=== PATIENT | female | born 1955 | race Caucasian/White ===

== ENCOUNTER → 2016-08-16 | Outpatient (CLI) | payer MEDICARE, MEDICAID ==
[~2016-08-16] MED LIST: ADVAIR 100-501 EACH IH; ARTIFICIAL TEAR15 M1 OU; ASA325 MG PO; ATARAX-DPS25 MG PO; B COMPLETE1 EACH PO; BOTOX100 UNITS SQ; BREO ELLIP1 PUFF/DOS IH; BUTRANS TD; CLARITIN DPS10 MG PO; CLARITIN10 M2 PO; COLACE-DPS100 MG PO; COREG DPS3.125 MG PO; DESYREL-DPS50 MG PO; DURAGESIC DPS25 MCG TP; FLONASE 0.05% D16 GM NS; FLONASE ALLER15.8 ML NS; GABAPENTIN400 MG PO; KLONOPIN DPS0.5 MG PO; KLONOPIN0.5 MG PO; MAG-OX400 MG PO; MAGOX 400400 MG PO; MILK OF MAGNESI10 ML PO; MIRALAX PACKET17 GM PO; MONTELUKAST SOD10 MG PO; NEURONTIN600 MG PO; NEURONTIN800 MG PO; OMNICEF DPS300 MG PO; OXY IR DPS5 MG PO; PREPLUS CA-FE1 EACH PO; PROAIR RESPICL90 MCG IH; PROTONIX40 MG PO; SAVELLA100 MG PO; SENOKOT S1 TAB PO; SINGULAIR10 MG PO; STOOL SOFTENER100 MG PO; TEARS NATURAL D15 ML OU; TROKENDI XR200 MG PO; TUDORZA PRESS400 MCG IH; TYLENOL DPS325 MG PO; ULTRAM DPS50 MG PO; VALIUM-DPS2 MG PO; VITAMIN D50000 UNIT PO; ZANAFLEX4 MG PO; [UNRECOGNIZED DRUG - OTHER] IH
== END | disposition home or self-care (01) ==
LOC: PTH.S 10:38
DX: Z01.818 Encounter for other preprocedural examination (principal)

== ENCOUNTER 2016-08-27 07:02 | Inpatient (IN) | payer MEDICARE, MEDICAID ==
[~2016-08-27] VITALS: Ht 154.9 cm; Wt 83.7 kg
--- NOTE | ~2016-08-27 | HP ---
ADMIT: 08/27/2016 RM/LOC: 505 [facility] MR#: [id number] [address] [place] [address] Pre-OP History and Physical SEX: F AGE: 60 : 1955 DATE OF SERVICE: CHIEF COMPLAINT: Right knee pain. HISTORY OF PRESENT ILLNESS: This 60-year-old lady presents today for right total knee arthroplasty. She has a history of idiopathic thrombocytopenic purpura and for surgical purpose will receive platelets prior to her surgery today. She has had a long history of osteoarthritis symptoms, currently having difficulties with activities of daily living because of her knee pain. She has activity-related pain, pain at rest, and pain interferes with her sleep. PAST MEDICAL HISTORY: Medical problems include idiopathic thrombocytopenic purpura, fibromyalgia, osteoarthritis, migraine headache, sleep apnea, asthma, diabetes. PAST SURGICAL HISTORY: Prior surgeries include a cholecystectomy, knee arthroscopy, and bilateral tubal ligation. MEDICATIONS: Medication list includes: 1. Reglan. 2. Fioricet. 3. Flexeril. 4. Metoprolol. 5. Tramadol p.r.n. 6. Lyrica. 7. Singulair. 8. Trokendi. 9. Claritin. 10.Vitamin D3. 11.Savella. 12.Gabapentin. 13.Tizanidine. 14.Advair Diskus. 15.Flonase. 16.Hydrochlorothiazide. 17.Clonazepam. 18.Naproxen. 19.Carvedilol. 20.Proventil. 21.Furosemide. 22.Protonix. ALLERGIES: SHE IS ALLERGIC TO CODEINE AND MORPHINE. FAMILY HISTORY: Positive for diabetes and cancer. SOCIAL HISTORY: The patient's physician is Dr. Gramajo. She lives here in [place]. She is a smoker. ADMIT: 08/27/2016 RM/LOC: 505 [facility] MR#: [id number] [address] [place] [address] Pre-OP History and Physical SEX: F AGE: 60 : 1955 PHYSICAL EXAMINATION: This patient has a valgus deformity of the right knee. She has lateral joint line pain and patellofemoral crepitus. No effusion. RADIOGRAPHS: Show collapse of the lateral compartment of the knee with subchondral sclerosis and marginal osteophytes, including the patellofemoral joint. IMPRESSION: Osteoarthritis, right knee. RECOMMENDATIONS: Right total knee arthroplasty. Risks, benefits, and alternatives as well as potential complications were discussed. EDIT: 08/28/2016 1704 ajf Clair Kennedy MD/ david JOB #: [id number] CC: Clair Kennedy, Attending Physician Sidney Gramajo, Family Physician
[~2016-08-27 07:02] MED LIST changes: -ASA325 MG PO; -BOTOX100 UNITS SQ; -CLARITIN DPS10 MG PO; -COLACE-DPS100 MG PO; -MIRALAX PACKET17 GM PO; -OXY IR DPS5 MG PO
[2016-08-30] MEDS ORDERED: OXY IR DPS5 MG PO (14:01)
[2016-08-30] MEDS ORDERED: MIRALAX PACKET17 GM PO (14:01)
[2016-08-30] MEDS ORDERED: ASA325 MG PO (14:02)
[2016-08-30] MEDS ORDERED: CLARITIN DPS10 MG PO (14:03)
[2016-08-30] MEDS ORDERED: COLACE-DPS100 MG PO (14:03)
[2016-08-30] MEDS ORDERED: PREPLUS CA-FE1 EACH PO (14:03)
[2016-08-30] MEDS ORDERED: BOTOX100 UNITS SQ (14:05)
--- NOTE | 2016-09-14 13:52 | OR ---
ADMIT: 08/27/2016 RM/LOC: 505 [facility] MR#: [id number] [id number] [address] [place] [address] Operative/Delivery Room Report SEX: F AGE: 60 : 1955 SURGERY DATE: 08/27/2016 SURGEON: Clair Kennedy MD PREOPERATIVE DIAGNOSIS: Osteoarthritis, right knee. POSTOPERATIVE DIAGNOSIS: Osteoarthritis, right knee. PROCEDURE: Right total knee arthroplasty. GARAGE SUPERVISOR: Wade Oliva PA-C ANESTHESIA: General/Exparel. TOURNIQUET TIME: 41 minutes. ESTIMATED BLOOD LOSS: 25 mL. COMPLICATIONS: None. SPECIMEN: Bone. COMPONENTS: Ankit and Ankit Attune total knee system with a #4 posterior stabilized lugged femoral, #4 fixed bearing tibial, 5 mm tibial articular, and 38 mm patella. I used 80 g of high viscosity bone cement with 80 mg of gentamicin, and a 1000 mg of vancomycin. DESCRIPTION OF PROCEDURE: This patient was brought to the operating room and after a satisfactory level of anesthesia was achieved, the right lower extremity was prepped and draped in the usual sterile fashion. Under tourniquet ischemia, a midline incision was made over the anterior aspect of the right knee centered on the patella. Dissection was carried down to the joint capsule where skin flaps were made at that level. A medial parapatellar incision was performed. The patellae everted. The knee flexed to 90 degrees. Then, using an intramedullary alignment guide, I made my distal femoral cut at 5 degrees in long axis of the femur. Then, using appropriate cutting blocks, prepared the distal femur for a #4 posterior stabilized lugged femoral component. The external alignment guide was then used to make my tibial cut and a #4 gave us the best coverage of the proximal tibia. A 5 mm then gave us the best stability and range of motion. She had full extension, I could flex her easily to 130 degrees. The patella was then measured, cut, and prepared for a 38 mm patellar component, and in doing so, I restored her normal 26 mm patellar height. At this point, all trial components were removed. Exparel was used per protocol then after thorough irrigation of all bony surfaces, I used 80 g of high viscosity bone cement with 80 mg of gentamicin and a 1000 mg of vancomycin mixed in the cement because of her smoking history, I cemented in ADMIT: 08/27/2016 RM/LOC: 505 [facility] MR#: [id number] [place] [address] Operative/Delivery Room Report SEX: F AGE: 60 : 1955 all 3 components, did a trial reduction and held the knee in extension and irrigated with warm antibiotic solution until the cement hardened. Once the cement had hardened, I flexed the knee, removed any extruded cement with an osteotome then after thorough irrigation of the knee, released tourniquet, obtained hemostasis and impacted my final component onto the tibial tray and reduced the knee. The patient had very good range of motion and stability, and at this point, the joint capsule and synovium were closed as a single layer using interrupted #1 Vicryl, running #2 Quill suture, 2-0 Vicryl in the subcutaneous tissue and then a running 3-0 Monocryl as a subcuticular and Ethicon Prineo for the skin. A sterile dressing was applied. The patient tolerated the procedure well and was then transferred from the operative suite in stable condition. Clair Kennedy MD/ david JOB #: [id number] CC: Clair Kennedy, Attending Physician Sidney Gramajo, Family Physician
--- NOTE | 2016-09-14 13:52 | DS ---
ADMIT: 08/27/2016 RM/LOC: 505 [facility] MR#: [id number] [address] [address] [place] [address] General Discharge Summary SEX: F AGE: 60 : 1955 ADMISSION DATE: 08/27/2016 DISCHARGE DATE: 08/29/2016 REASON FOR ADMISSION: Elective right total knee arthroplasty after failing conservative treatment. PREOPERATIVE DIAGNOSIS: Osteoarthritis of the right knee. POSTOPERATIVE DIAGNOSIS: Osteoarthritis of the right knee. PROCEDURE PERFORMED: Right total knee arthroplasty. SURGEON: Clair Kennedy MD AREA SAFETY MANAGER: Wade Oliva PA-C ANESTHESIA: General. ESTIMATED BLOOD LOSS: 25 mL. COMPLICATIONS: None. ACTIVE MEDICAL PROBLEMS: 1. Idiopathic thrombocytopenic purpura. 2. Fibromyalgia. 3. Osteoarthritis. 4. Migraine headaches. 5. Sleep apnea. 6. Asthma. 7. Diabetes. HOSPITAL COURSE: The patient was admitted on 08/27/2016 for elective right total knee arthroplasty, done successfully without any complications by Dr. Kennedy. She tolerated the procedure well. Prior to the procedure, the patient was administered fresh frozen plasma as prophylaxis for her ITP, she tolerated the infusion well and had no adverse reactions. Pain was well controlled postoperatively with intraoperative Exparel and postoperative oral analgesics. She did suffer from some mild acute blood loss anemia. Her hemoglobin dropped to 9.9 on 08/29/2016, but she remained hemodynamically stable and did not require a blood transfusion. By postoperative day #2, she was safe and participated well with physical therapy. She was stable and ready for discharge with plans for outpatient physical therapy. DISCHARGE MEDICATIONS: 1. Clonazepam 0.25 mg at bedtime. 2. Pantoprazole 40 mg twice daily. 3. Trazodone 50 mg at bedtime. 4. Gabapentin 800 mg twice daily. 5. Gabapentin 1200 mg at bedtime. ADMIT: 08/27/2016 RM/LOC: 505 [facility] MR#: [id number] [id number] [address] [place] [address] General Discharge Summary SEX: F AGE: 60 : 1955 6. Savella 100 mg twice daily. 7. Trokendi XR formula 500 mg every morning. 8. Hydroxyzine hydrochloride 25 mg one tablet twice daily as needed. 9. Tizanidine 4 mg three times daily. 10.Montelukast 10 mg everyday. 11.Butrans patch 15 mcg weekly on Saturday. 12.Breo Ellipta 100/25 mcg one puff twice daily. 13.Ventolin HFA 90 mcg two puffs 4 times daily as needed. 14.Loratadine 10 mg everyday. 15.Docusate sodium 100 mg twice daily. 16.Vitamin D2 at 50,000 units Saturday and Saturday. 17.PrePLUS 27-1 mg vitamin everyday. 18.Artificial Tears two drops four times daily both eyes. 19.Flonase 50 mcg two sprays everyday both nostrils. 20.Magnesium oxide 400 mg twice daily. 21.Aspirin 325 mg at bedtime for 33 days. 22.MiraLax 17 g everyday. 23.Senokot two tablets twice daily. 24.Acetaminophen 650 mg every 6 hours as needed. 25.Tramadol 50-100 mg every 6 hours as needed for pain. 26.Oxycodone 5 mg one to two tablets every 4 hours as needed for breakthrough pain. DISCHARGE INSTRUCTIONS: The patient was discharged home with plans for outpatient physical therapy per total knee arthroplasty protocol. Follow up in the Orthopedic Office in two weeks for wound check and six weeks with x- rays. Follow up with primary care as directed. MARVIN Morel / Clair Kennedy MD / david JOB #: [id number] CC: Clair Kennedy MD, Attending Physician Sidney Gramajo MD, Family Physician
== END 2016-08-29 15:15 | disposition home or self-care (01) | DRG 470 ==
LOC: WOR 07:02 → 5MS 07:02
PROVIDERS: ADMIT Orthopaedic Surgery
DX: M17.11 Unilateral primary osteoarthritis, right knee (principal); D69.3 Immune thrombocytopenic purpura; K76.0 Fatty (change of) liver, not elsewhere classified; D64.9 Anemia, unspecified; I10 Essential (primary) hypertension; E11.9 Type 2 diabetes mellitus without complications; M79.7 Fibromyalgia; G47.30 Sleep apnea, unspecified; I95.2 Hypotension due to drugs; J44.9 Chronic obstructive pulmonary disease, unspecified; J45.909 Unspecified asthma, uncomplicated; E55.9 Vitamin D deficiency, unspecified; M81.0 Age-related osteoporosis without current pathological fracture; I25.10 Atherosclerotic heart disease of native coronary artery without angina pectoris; Z86.19 Personal history of other infectious and parasitic diseases; Z86.73 Personal history of transient ischemic attack (TIA), and cerebral infarction without residual deficits; Z87.891 Personal history of nicotine dependence